=== PATIENT | male | born 1955 | race Caucasian/White ===

== ENCOUNTER 2019-07-28 13:25 | Inpatient (IN) | payer OTHER ==
[2019-07-28 13:48] VITALS: BMI 20.3
--- NOTE | 2019-07-28 17:44 | HP ---
COWS - Scale Resting Pulse: 0= MD 80 or Below Sweatin=Flushed/Facial Moisture Restless Observation: 0= Sits Still Pupil Size: 2= Moderately Dilated (Pupils) Bone or Joint Aches: 1= Mild Discomfort Runny Nose/ Eye Tearin= Nasal Congestion GI Upset > 30mins: 0= None Tremor Observation: 2= Slight Tremor Visible Yawning Observation: 0= None Anxiety or Irritability: 1=Feels Anxious/Irritable Goose Flesh Skin: 0=Smooth Skin COWS Score: 9 CIWA Score Nausea/Vomitin-No Nausea/No Vomiting Muscle Tremors: 4-Moderate,w/Arms Extend Anxiety: 1-Mildly Anxious Agitation: 0-Normal Activity Paroxysmal Sweats: 3 (Increased facial moisture) Orientation: 0-Oriented Tacttile Disturbances: 0-None Auditory Disturbances: 0-None Visual Disturbances: 0-None Headache: 0-None Present CIWA-Ar Total Score: 8 - Admission Criteria OASAS Guidelines: Admission for Medically Managed Detox: Requires at least one of the followin. CIWA greater than 12 2. Seizures within the past 24 hours 3. Delirium tremens within the past 24 hours 4. Hallucinations within the past 24 hours 5. Acute intervention needed for co occurring medical disorder 6. Acute intervention needed for co occurring psychiatric disorder 7. Severe withdrawal that cannot be handled at a lower level of care (continued vomiting, continued diarrhea, abnormal vital signs) requiring intravenous medication and/or fluids 8. Patient presents the following: Acute intervention needed for co-occurring med or psych disorder (IVDU; HIV +) Admission Criteria Met: Admission criteria met Admitting History and Physical - Smoking History Smoking history: Current every day smoker Have you smoked in the past 12 months: Yes Aproximately how many cigarettes per day: 10 - Alcohol/Substance Use Hx Alcohol Use: Yes Admission ROS S - HPI Chief Complaint: Here for heroin and alcohol detox. Allergies/Adverse Reactions: Allergies Allergy/AdvReac Type Severity Reaction Status Date / Time No Known Allergies Allergy Verified 07/28/19 13:41 History of Present Illness: 63 yo presents w/ alcohol and heroin withdrawal x 2 days and seeking detox. UTox: + THC/CASSANDRA/FEN/OXY/MOP/MTD Patient relapsed 2 days after last admission. Heroin use began at age [age]. Currently using 10-12 bags/day IV. Denies sharing needles or works. Last took heroin on 07/27/19 States took illicit methadone 10 mg 3 days ago. No Narcan kit at home. Cocaine use began at age 25. Currently speed balls w/ heroin Marijuana use began at age 17. States stopped in 1984. Does not know how tox is (+) Nicotine use began at age 11. Currently smoke 4 cig/day. Alcohol use began at age 25. Current use is 1-2 pints liquor/day w/ some beers. Last drink 2 days ago. Was on Suboxone program States left last month. Picked up a 30 day supply which ended yesterday. Has not been taking Suboxone for months. Overdose in 1991. Denies seizures or blackouts. 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 Occ. Depression. Denies S/. SHx: Domiciles. Unemployed. (SSI);Denies legal issues. Patient Name: Gabriel Greenfield Date: 1955 Address: [address] [place] [address] Sex: Male Rx Written Rx Dispensed Drug Quantity Days Supply Prescriber Name 06/28/2019 06/28/2019 buprenorphine-naloxone 8-2 mg sl film 90 30 [facility] 05/31/2019 05/31/2019 buprenorphine-naloxone 8-2 mg sl film 90 30 [facility] 04/29/2019 04/29/2019 buprenorphine-naloxone 8-2 mg sl film 90 30 [facility] 03/27/2019 03/27/2019 buprenorphine-naloxone 8-2 mg sl film 90 30 Tabby Pradhan 01/18/2019 02/28/2019 buprenorphine-naloxone 8-2 mg sl film 90 30 [facility] 01/18/2019 01/26/2019 buprenorphine-naloxone 8-2 mg sl film 90 30 [facility] Patient Name: Sage Greenfield Date: 1955 Address: [address], [place] [address] Sex: Male Rx Written Rx Dispensed Drug Quantity Days Supply Prescriber Name 06/19/2019 06/19/2019 chlordiazepoxide 10 mg capsule 20 2 Rito Arrington MD Patient Name: Sage Greenfield Date: 1955 Address: [facility] [place] [place] [address] Sex: Male Rx Written Rx Dispensed Drug Quantity Days Supply Prescriber Name 05/22/2019 05/22/2019 chlordiazepoxide 25 mg capsule 8 2 Hernán Yu 03/19/2019 03/20/2019 lorazepam 2 mg tablet 8 2 Hernán Yu Exam Limitations: No Limitations - Ebola screening Have you traveled outside of the country in the last 21 days: No (N) Have you had contact with anyone from an Ebola affected area: No Do you have a fever: No - Review of Systems Constitutional: Diaphoresis, Changes in sleep (Difficulty falling asleep) EENT: reports: Blurred Vision, Nose Congestion, Dental Problems (Missing teeth.) Respiratory: reports: No Symptoms reported Cardiac: reports: No Symptoms Reported GI: reports: Diarrhea (Watery, brownish x 2 days) : reports: No Symptoms Reported Musculoskeletal: reports: No Symptoms Reported Integumentary: reports: No Symptoms Reported Neuro: reports: Numbness (Intermittent (R) lower legs) Endocrine: reports: Increased Thirst Hematology: reports: Other (HIV +) Psychiatric: reports: Orientated x3, Anxious Patient History - Patient Medical History Hx Anemia: No Hx Asthma: No Hx Chronic Obstructive Pulmonary Disease (COPD): No Hx Cancer: No Hx Cardiac Disorders: No Hx Congestive Heart Failure: No Hx Hypertension: No Hx Hypercholesterolemia: No HX Cerebrovascular Accident: No Hx Seizures: No Hx Dementia: No Hx Diabetes: No Hx Gastrointestinal Disorders: No Hx Liver Disease: No Hx Genitourinary Disorders: No Hx Sexually Transmitted Disorders: Yes (HIV) Hx Renal Disease (ESRD): No Hx Thyroid Disease: No Hx Human Immunodeficiency Virus (HIV): Yes (Diagnosed 1989) Hx Hepatitis C: No Hx Depression: No Hx Suicide Attempt: No (Denies suicidal ideation at this time) Hx Bipolar Disorder: No Hx Schizophrenia: No - Patient Surgical History Past Surgical History: Yes Hx Neurologic Surgery: No Hx Cataract Extraction: No Hx Cardiac Surgery: No Hx Lung Surgery: No Hx Breast Surgery: No Hx Breast Biopsy: No Hx Abdominal Surgery: No Hx Appendectomy: Yes (1979) Hx Cholecystectomy: No Hx Genitourinary Surgery: No Hx Section: No Hx Orthopedic Surgery: No Anesthesia Reaction: No - Smoking Cessation Smoking history: Current every day smoker Have you smoked in the past 12 months: Yes Aproximately how many cigarettes per day: 4 Hx Chewing Tobacco Use: No Initiated information on smoking cessation: Yes 'Breaking Loose' booklet given: 07/28/19 - Substances abused Alcohol Substance route: Oral Frequency: Daily Amount used: 1 1/2 pint of vodka/2 six pack of beer Age of first use: 25 Date of last use: 07/27/19 Heroin Substance route: Injection Frequency: Daily Amount used: 10-12 bags Age of first use: 14 Date of last use: 07/27/19 Cocaine Substance route: Injection Frequency: Daily Amount used: 2 bags Age of first use: 25 Date of last use: 07/27/19 Admission Physical Exam S - Vital Signs Vital Signs: Vital Signs - 24 hr 07/28/19 13:41 Temperature 97.6 F Pulse Rate 72 Respiratory 20 Rate Blood Pressure 101/77 - Physical General Appearance: Yes: Thin, Tremorous, Sweating (Increased facial moisture), Anxious HEENTM: Yes: EOMI, Hearing grossly Normal, Normal Voice, [place] (Pupils = 4 mm), Pharynx Normal, Nasal Congestion, Other (Decrease lift (L) eye brow) Respiratory: Yes: Lungs Clear (Pulse Ox = 99), Normal Breath Sounds, No Respiratory Distress Neck: Yes: No masses,lesions,Nodules, Supple Breast: Yes: Breast Exam Deferred Cardiology: Yes: Regular Rhythm, Regular Rate, S1, S2 Abdominal: Yes: Non Tender, Flat, Soft, Increased Bowel Sounds Genitourinary: Yes: Within Normal Limits Back: Yes: Within Normal Limits Musculoskeletal: Yes: Gait Steady (but slow), Joint Stiffness ((L) leg/knee.) Neurological: Yes: loin trimmer II-XII NML intact, Fully Oriented, Alert, Other (BHG (R) > (L)) Integumentary: Yes: Normal Color, Warm, Diaphoresis (Increased facial moisture) , Track Moreno (Old and new track moreno on lwer arms. (+) tenderness. No increased eythema or warmth.) Lymphatic: Yes: Within Normal Limits - Diagnostic (1) History of HIV infection Current Visit: Yes Status: Acute (2) Decreased range of motion (ROM) of left knee Current Visit: Yes Status: Acute (3) Alcohol dependence with uncomplicated withdrawal Current Visit: Yes Status: Acute (4) Nicotine dependence Current Visit: Yes Status: Chronic Qualifiers: Nicotine product type: cigarettes Substance use status: uncomplicated Qualified Code(s): F17.210 - Nicotine dependence, cigarettes, uncomplicated (5) Cocaine dependence, uncomplicated Current Visit: Yes Status: Chronic (6) Cannabis dependence, uncomplicated Current Visit: Yes Status: Chronic (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 (8) Opioid dependence with withdrawal Current Visit: Yes Status: Acute (9) Track moreno due to intravenous drug abuse Current Visit: Yes Status: Chronic Cleared for Admission [facility] - Detox or Rehab [facility] Level of Care: Medically Managed Detox Regimen/Protocol: Methadone/Valium Claeared for Rehab Admission: No Breathalyzer - Breathalyzer Breathalyzer: 0 Urine Drug Screen - Test Device Lot number: [id number] Expiration date: 03/08/21 - Control Is test valid?: Yes - Results Drug screen NEGATIVE: No Urine drug screen results: THC-Marijuana, CASSANDRA-Cocaine, FEN-Fentanyl, MOP-Opiates , OXY-Oxycodone, MTD-Methadone Inpatient Rehab Admission - Rehab Decision to Admit Inpatient rehab admission?: No
[2019-07-28] MEDS ORDERED: ACETAMINOPHEN 325 MG TABLET (FP) PO PRN ×2 (18:30)
[2019-07-28] MEDS ORDERED: MELATONIN 5 MG TABLETS PO PRN (18:30)
[2019-07-28] MEDS ORDERED: METHADONE HCL 10 MG TABLET (FOR DETOX USE ONLY) PO ONE (18:30)
[2019-07-28] MEDS ORDERED: MAG HYDROX/AL HYDROX/SIMETH 30 ML UNIT-DOSE CUP PO PRN (18:30)
[2019-07-28] MEDS ORDERED: MAGNESIUM CITRATE 300 ML BOTTLE PO PRN (18:30)
[2019-07-28] MEDS ORDERED: MENTHOL/PHENOL 1 EACH UD MM PRN (18:30)
[2019-07-28] MEDS ORDERED: IBUPROFEN 400 MG TABLET (FP) PO PRN (18:30)
[2019-07-28] MEDS ORDERED: MAGNESIUM HYDROX 2400MG/30ML ORAL SUSPENSION 30 ML CUP PO PRN (18:30)
[2019-07-28] MEDS ORDERED: diazePAM 5 MG TABLET PO PRN (18:33)
[2019-07-28] MEDS ORDERED: LOPERAMIDE HCL 2 MG CAPSULE PO PRN (18:37)
[2019-07-28] MEDS: NICOTINE POLACRILEX 2 MG GUM BUC PRN (20:08)
[2019-07-28] MEDS: diazePAM 5 MG TABLET PO SCH (22:33)
[2019-07-28] MEDS: BACITRACIN 15 GM TUBE TOPICAL OINTMENT TP SCH (22:34)
[2019-07-28] MEDS: THIAMINE HCL 100 MG TABLET (FP) PO SCH (22:34)
[2019-07-29] MEDS: diazePAM 5 MG TABLET PO SCH ×3 (06:15→22:14)
[2019-07-29] MEDS: NICOTINE POLACRILEX 2 MG GUM BUC PRN (06:15)
[2019-07-29 09:56] LABS: HEMATOCRIT 34.8 % (35.4-49); MCH 30.9 pg (25.7-33.7); MCHC 34.4 g/dl (32.0-35.9); MEAN CELL VOLUME 89.8 fl (80-96); MEAN PLT VOLUME 9.3 fl (7.5-11.1); PLATELET COUNT 221 K/MM3 (134-434); RBC 3.88 M/mm3 (4.00-5.60); RDW 13.8 % (11.9-15.9); WHITE BLOOD COUNT 10.4 K/mm3 (4.0-10.0)
[2019-07-29] MEDS ORDERED: METHADONE HCL 5 MG TABLET (FOR DETOX USE ONLY) PO ONE (10:00)
[2019-07-29 10:02] LABS: ALBUMIN 2.6 g/dl (3.4-5.0); BILIRUBIN,TOTAL 0.4 mg/dL (0.2-1); BLOOD UREA NITROGEN 12.3 mg/dL (7-18); CALCIUM 8.3 mg/dL (8.5-10.1); CREATININE 0.7 mg/dL (0.55-1.3); POTASSIUM 4.2 mmol/L (3.5-5.1); TOT PROT 5.9 g/dl (6.4-8.2)
[2019-07-29] MEDS: PRENATAL VITAMINS W/ FOLIC ACID TABLET (FP) PO SCH (10:46)
[2019-07-29] MEDS: BACITRACIN 15 GM TUBE TOPICAL OINTMENT TP SCH ×2 (10:47→22:14)
[2019-07-29] MEDS: BISMUTH SUBSALICYLATE 524 MG/30 ML UD PO PRN (10:48)
--- NOTE | 2019-07-29 11:38 | PN ---
[facility] CIWA - CIWA Score Nausea/Vomitin-Mild Nausea/No Vomiting Muscle Tremors: 3 Anxiety: 3 Agitation: 3 Paroxysmal Sweats: 2 Orientation: 0-Oriented Tacttile Disturbances: 0-None Auditory Disturbances: 1-Very Mild Visual Disturbances: 0-None Headache: 1-Very Mild CIWA-Ar Total Score: 14 BHS COWS - Scale Resting Pulse: 0= [place] 80 or Below Sweatin= Chills/Flushing Restless Observation: 0= Sits Still Pupil Size: 0= Normal to Room Light Bone or Joint Aches: 1= Mild Discomfort Runny Nose/ Eye Tearin= Nasal Congestion GI Upset > 30mins: 2= Nausea/Diarrhea (no diarrhea) Tremor Observation of Outstretched Hands: 2= Slight Tremor Visible Yawning Observation: 2= >3x During Session Anxiety or Irritability: 2=Irritable/Anxious Goose Flesh Skin: 3=Piloerection COWS Score: 14 S Progress Note (SOAP) Subjective: report has alcohol and opiate withdrawal sx today more than yesterday report valium and methadone help with the withdrawal sx ate breakfast no trouble chewing nor swallowing feeling tired resting on bed Objective: 07/29/19 11:38 Vital Signs Temperature 98.9 F 07/29/19 09:07 Pulse Rate 76 07/29/19 09:07 Respiratory Rate 18 07/29/19 09:07 Blood Pressure 120/73 07/29/19 09:07 O2 Sat by Pulse Oximetry (%) Laboratory Last Values WBC 10.4 K/mm3 (4.0-10.0) H 07/29/19 08:00 RBC 3.88 M/mm3 (4.00-5.60) L 07/29/19 08:00 Hgb 12.0 GM/dL (11.7-16.9) 07/29/19 08:00 Hct 34.8 % (35.4-49) L 07/29/19 08:00 MCV 89.8 fl (80-96) 07/29/19 08:00 MCH 30.9 pg (25.7-33.7) 07/29/19 08:00 MCHC 34.4 g/dl (32.0-35.9) 07/29/19 08:00 RDW 13.8 % (11.9-15.9) 07/29/19 08:00 Plt Count 221 K/MM3 (134-434) 07/29/19 08:00 MPV 9.3 fl (7.5-11.1) 07/29/19 08:00 Sodium 139 mmol/L (136-145) 07/29/19 08:00 Potassium 4.2 mmol/L (3.5-5.1) 07/29/19 08:00 Chloride 106 mmol/L (98-107) 07/29/19 08:00 Carbon Dioxide 28 mmol/L (21-32) 07/29/19 08:00 Anion Gap 5 MMOL/L (8-16) L 07/29/19 08:00 BUN 12.3 mg/dL (7-18) 07/29/19 08:00 Creatinine 0.7 mg/dL (0.55-1.3) 07/29/19 08:00 Est GFR (CKD-EPI)AfAm 116.40 07/29/19 08:00 Est GFR (CKD-EPI)NonAf 100.43 07/29/19 08:00 Random Glucose 85 mg/dL (74-106) 07/29/19 08:00 Calcium 8.3 mg/dL (8.5-10.1) L 07/29/19 08:00 Total Bilirubin 0.4 mg/dL (0.2-1) 07/29/19 08:00 AST 16 U/L (15-37) 07/29/19 08:00 ALT 13 U/L (13-61) 07/29/19 08:00 Alkaline Phosphatase 80 U/L (45-117) 07/29/19 08:00 Total Protein 5.9 g/dl (6.4-8.2) L 07/29/19 08:00 Albumin 2.6 g/dl (3.4-5.0) L 07/29/19 08:00 RPR Titer Nonreactive (NONREACTIVE) 07/29/19 08:00 lab noted Assessment: 07/29/19 11:38 alcohol and opiate withdrawal sx Plan: continue valium and methadone detox regimen discuss medication assisted treatment program [facility] narcan from pharmacy
[2019-07-29] MEDS: THIAMINE HCL 100 MG TABLET (FP) PO SCH (22:15)
[2019-07-30] MEDS ORDERED: diazePAM 5 MG TABLET PO SCH (06:00)
[2019-07-30 09:20] VITALS: BP 119/64; PULSE 82; TEMP 96.4
[2019-07-30] MEDS ORDERED: METHADONE HCL 10 MG TABLET (FOR DETOX USE ONLY) PO ONE (10:00)
[2019-07-30] MEDS: BACITRACIN 15 GM TUBE TOPICAL OINTMENT TP SCH (10:04)
[2019-07-30] MEDS: PRENATAL VITAMINS W/ FOLIC ACID TABLET (FP) PO SCH (10:04)
[2019-07-30] MEDS: BISMUTH SUBSALICYLATE 524 MG/30 ML UD PO PRN (10:06)
--- NOTE | 2019-07-30 12:23 | DS ---
[facility] Detox Discharge Summary Admission Date: 07/28/19 Discharge Date: 07/30/19 - History Present History: Alcohol Dependence, Opioid Dependence Additional Comments: 63 years old male admitted on 07/28/19for alcohol and opiate withdrawal sx management did well with valium and methadone detox regimen no complication through out the detox stay alert oriented x 3 cardiac S1S2 regular rhythm respiratory clear lung bilaterally on auscultation extremities full range of motion - Physical Exam Results Vital Signs: Vital Signs Temperature 96.4 F L 07/30/19 09:20 Pulse Rate 82 07/30/19 09:20 Respiratory Rate 18 07/30/19 09:20 Blood Pressure 119/64 07/30/19 09:20 O2 Sat by Pulse Oximetry (%) Pertinent Admission Physical Exam Findings: alcohol and opiate withdrawal sx Laboratory Last Values WBC 10.4 K/mm3 (4.0-10.0) H 07/29/19 08:00 RBC 3.88 M/mm3 (4.00-5.60) L 07/29/19 08:00 Hgb 12.0 GM/dL (11.7-16.9) 07/29/19 08:00 Hct 34.8 % (35.4-49) L 07/29/19 08:00 MCV 89.8 fl (80-96) 07/29/19 08:00 MCH 30.9 pg (25.7-33.7) 07/29/19 08:00 MCHC 34.4 g/dl (32.0-35.9) 07/29/19 08:00 RDW 13.8 % (11.9-15.9) 07/29/19 08:00 Plt Count 221 K/MM3 (134-434) 07/29/19 08:00 MPV 9.3 fl (7.5-11.1) 07/29/19 08:00 Sodium 139 mmol/L (136-145) 07/29/19 08:00 Potassium 4.2 mmol/L (3.5-5.1) 07/29/19 08:00 Chloride 106 mmol/L (98-107) 07/29/19 08:00 Carbon Dioxide 28 mmol/L (21-32) 07/29/19 08:00 Anion Gap 5 MMOL/L (8-16) L 07/29/19 08:00 BUN 12.3 mg/dL (7-18) 07/29/19 08:00 Creatinine 0.7 mg/dL (0.55-1.3) 07/29/19 08:00 Est GFR (CKD-EPI)AfAm 116.40 07/29/19 08:00 Est GFR (CKD-EPI)NonAf 100.43 07/29/19 08:00 Random Glucose 85 mg/dL (74-106) 07/29/19 08:00 Calcium 8.3 mg/dL (8.5-10.1) L 07/29/19 08:00 Total Bilirubin 0.4 mg/dL (0.2-1) 07/29/19 08:00 AST 16 U/L (15-37) 07/29/19 08:00 ALT 13 U/L (13-61) 07/29/19 08:00 Alkaline Phosphatase 80 U/L (45-117) 07/29/19 08:00 Total Protein 5.9 g/dl (6.4-8.2) L 07/29/19 08:00 Albumin 2.6 g/dl (3.4-5.0) L 07/29/19 08:00 RPR Titer Nonreactive (NONREACTIVE) 07/29/19 08:00 lab noted - Treatment Hospital Course: Detox Protocol Followed, Detoxed Safely, Responded well, Discharged Condition Good, Rehab Referral Accepted Patient has Accepted a Rehab Referral to: medication assisted treatment program - Medication Discharge Medications: Ambulatory Orders Naloxone HCl [Narcan] 4 mg NS ASDIR PRN #1 spray 07/29/19 - Diagnosis (1) Alcohol dependence with uncomplicated withdrawal Current Visit: Yes Status: Acute (2) Opioid dependence with withdrawal Current Visit: Yes Status: Acute (3) HIV (human immunodeficiency virus infection) Current Visit: Yes Status: Chronic Qualifiers: HIV symptom status: asymptomatic Qualified Code(s): Z21 - Asymptomatic human immunodeficiency virus [HIV] infection status (4) Nicotine dependence Current Visit: Yes Status: Acute Qualifiers: Nicotine product type: cigarettes Substance use status: in withdrawal Qualified Code(s): F17.213 - Nicotine dependence, cigarettes, with withdrawal - AMA Did Patient Leave Against Medical Advice: No CIWA Score - CIWA Score Nausea/Vomitin-No Nausea/No Vomiting Muscle Tremors: 2 Anxiety: 2 Agitation: 2 Paroxysmal Sweats: 1-Minimal Palms Moist Orientation: 0-Oriented Tacttile Disturbances: 0-None Auditory Disturbances: 1-Very Mild Visual Disturbances: 0-None Headache: 1-Very Mild CIWA-Ar Total Score: 9 COWS (PN) - Opiate Withdrawal Resting Pulse: 1= NE 81-100 Sweatin= Chills/Flushing Restless Observation: 0= Sits Still Pupil Size: 0= Normal to Room Light Bone or Joint Aches: 1= Mild Discomfort Runny Nose/ Eye Tearin= Nasal Congestion GI Upset > 30mins: 1= Stomach Cramp Tremor Observation of Outstretched Hands: 2= Slight Tremor Visible Yawning Observation: 1= 1-2x During Session Anxiety or Irritability: 1=Feels Anxious/Irritable Goose Flesh Skin: 0=Smooth Skin COWS Score: 9
[2019-07-31] MEDS ORDERED: diazePAM 5 MG TABLET PO ONE (06:00)
[2019-07-31] MEDS ORDERED: METHADONE HCL 5 MG TABLET (FOR DETOX USE ONLY) PO ONE (06:00)
== END 2019-07-30 12:10 | disposition home or self-care (01) | DRG 773 ==
LOC: YASAS 13:25 → Y3N 19:14
PROVIDERS: ADMIT Allergy & Immunology; ATTEND Allergy & Immunology
PROC: HZ2ZZZZ Detoxification Services for Substance Abuse Treatment (ICD-10-PCS; principal; 2019-07-28)
DX: F11.23 Opioid dependence with withdrawal (principal); F10.230 Alcohol dependence with withdrawal, uncomplicated; F14.20 Cocaine dependence, uncomplicated; F12.20 Cannabis dependence, uncomplicated; F17.213 Nicotine dependence, cigarettes, with withdrawal; Z21 Asymptomatic human immunodeficiency virus [HIV] infection status; L90.5 Scar conditions and fibrosis of skin; Z86.69 Personal history of other diseases of the nervous system and sense organs
CPT/HCPCS: 36415; 80053; 85027; 86593